=== PATIENT | male | born 1940 | race Caucasian/White ===

== ENCOUNTER 2016-07-06 08:13 | Emergency (ER) | payer MEDICARE, OTHER ==
[~2016-07-06] VITALS: Ht 180.3 cm; Wt 79.4 kg
[~2016-07-06 08:13] MED LIST: ASPIRIN81 MG PO; BRILINTA90 MG PO; LIPITOR20 MG PO; LISINOPRIL2.5 MG PO; PLAVIX75 MG PO; PRINIVIL2.5 MG PO; RANEXA500 MG PO; TENORMIN25 MG PO; TUMS500 MG PO; VITAMIN D3400 UNIT PO
[2016-07-06] MEDS ORDERED: ELIQUIS5 MG PO (10:29)
[2016-10-21] MEDS ORDERED: OMEPRAZOLE20 M1 PO (23:18)
[2016-10-21] MEDS ORDERED: IMDUR30 MG PO (23:19)
== END 2016-07-06 13:05 | disposition short-term general hospital (02) ==
LOC: ER 08:13
DX: R07.9 Chest pain, unspecified (principal); R13.10 Dysphagia, unspecified; E78.5 Hyperlipidemia, unspecified; I10 Essential (primary) hypertension; I25.10 Atherosclerotic heart disease of native coronary artery without angina pectoris; Z95.1 Presence of aortocoronary bypass graft; Z79.899 Other long term (current) drug therapy; Z79.82 Long term (current) use of aspirin

== ENCOUNTER → 2016-07-18 | Outpatient (CLI) | payer MEDICARE, OTHER ==
[~2016-07-18] MED LIST changes: +ELIQUIS5 MG PO; +IMDUR30 MG PO; +OMEPRAZOLE20 M1 PO
== END | disposition short-term general hospital (02) ==
LOC: CLCARD 08:23
DX: I25.10 Atherosclerotic heart disease of native coronary artery without angina pectoris (principal); I25.5 Ischemic cardiomyopathy; I10 Essential (primary) hypertension; I48.0 Paroxysmal atrial fibrillation; I50.42 Chronic combined systolic (congestive) and diastolic (congestive) heart failure; Z95.1 Presence of aortocoronary bypass graft; Z79.01 Long term (current) use of anticoagulants; Z79.899 Other long term (current) drug therapy

== ENCOUNTER → 2016-07-25 | Outpatient (CLI) | payer MEDICARE, OTHER | END | disposition short-term general hospital (02) | LOC: CLCARD 08:21 | DX: T82.858A Stenosis of other vascular prosthetic devices, implants and grafts, initial encounter (principal); I21.29 ST elevation (STEMI) myocardial infarction involving other sites; I25.10 Atherosclerotic heart disease of native coronary artery without angina pectoris; I25.5 Ischemic cardiomyopathy; I11.0 Hypertensive heart disease with heart failure; I50.42 Chronic combined systolic (congestive) and diastolic (congestive) heart failure; E78.5 Hyperlipidemia, unspecified; I48.0 Paroxysmal atrial fibrillation; K44.9 Diaphragmatic hernia without obstruction or gangrene; Z98.890 Other specified postprocedural states; Z95.1 Presence of aortocoronary bypass graft ==